=== PATIENT | female | born 1995 | race Caucasian/White ===

== ENCOUNTER 2018-07-25 16:18 | Emergency (ER) | payer OTHER, MEDICAID ==
[~2018-07-25] VITALS: Ht 162.6 cm; Wt 88.5 kg
[2018-07-25 16:23] VITALS: BP 133/72
--- NOTE | 2018-07-25 16:30 | NUR ---
A1 23 YR F BIB SELF WITH C/O INTERMITTENT LT LOWER ABD PAIN FOR OVER A WK. DENIES VAG BLEED OR DISCHARGE. PT STATES SHE HAS MORNING SICKNESS; SKIN IS PINK/WARM/DRY; AAOX4 WITH EVEN AND STEADY GAIT; HR EVEN AND REGULAR; PT DENIES ANY FEVER, CP, SOB, OR COUGH AT THIS TIME; PATIENT STATES PAIN OF 9/10 AT THIS TIME; VSS; PATIENT POSITIONED FOR COMFORT; HOB ELEVATED; BEDRAILS UP X2; BED DOWN. ER MD MADE AWARE OF PT STATUS.
--- NOTE | 2018-07-25 16:32 | NUR ---
PT AMBULATED TO ER BED 12
--- NOTE | 2018-07-25 16:37 | NUR ---
DR. CHAKRABORTY EVALUATING PT BEDSIDE
[2018-07-25 16:50] LABS: APPEARANCE,URINE CLEAR (CLEAR); BILIRUBIN,URINE NEGATIVE (NEGATIVE); BLOOD, URINE NEGATIVE (NEGATIVE); COLOR,URINE YELLOW (YELLOW); LEUKOCYTE ESTERASE ,URINE NEGATIVE (NEGATIVE); NITRITE, URINE NEGATIVE (NEGATIVE); UGLUCOSE 1+ (NEGATIVE)
[2018-07-25 17:12] LABS: BASOPHILS % (AUTO) 0.3 % (0.0-2.0); EOSINOPHILS # (AUTO) 0.2 K/uL (0-0.4); EOSINOPHILS % (AUTO) 2.5 % (0.0-4.0); HEMATOCRIT 37.7 % (36-48); HEMOGLOBIN 12.5 g/dL (12.0-16.0); LYMPHOCYTES % (AUTO) 32.6 % (20.5-51.1); MEAN CORPUSCULAR HEMOGLOBIN 27 pg (27-31); MEAN CORPUSCULAR HGB CONC 33 g/dL (33-37); MEAN CORPUSCULAR VOLUME 82.1 fL (80-94); MONOCYTES # (AUTO) 0.6 K/uL (0.8-1.0); MONOCYTES % (AUTO) 6.1 % (1.7-9.3); NEUTROPHILS # (AUTO) 5.3 K/uL (1.8-7.7); NEUTROPHILS % (AUTO) 58.5 % (42.2-75.2); PLATELET COUNT (AUTO) 233 K/uL (140-450); RED BLOOD CELL COUNT(AUTO) 4.59 MIL/uL (4.20-5.40); RED CELL DISTRIBUTION WIDTH 15.5 % (11.6-13.7); WHITE BLOOD COUNT (AUTO) 9.1 K/uL (4.8-10.8)
[2018-07-25 17:23] LABS: ANION GAP 12.3 (8-16); CARBON DIOXIDE 24.2 mmol/L (21-32); CREATININE 0.8 mg/dL (0.6-1.3); POTASSIUM 3.5 mmol/L (3.5-5.1)
[2018-07-25] MEDS ORDERED: IBUPROFEN 800 MG TAB PO ONE (18:00)
--- NOTE | 2018-07-25 18:59 | NUR ---
PT STATES HER ABDOMINAL PAIN IS 0/10.
[2018-07-25 19:00] VITALS: BP 119/74
--- NOTE | 2018-07-25 19:00 | NUR ---
Patient discharged with v/s stable. Written and verbal after care instructions given and explained. Patient alert, oriented and verbalized understanding of instructions. Ambulatory with steady gait. All questions addressed prior to discharge. ID band removed. Patient advised to follow up with PMD. Rx of MOTRIN 800 MG given. Patient educated on indication of medication including possible reaction and side effects. Opportunity to ask questions provided and answered.
== END 2018-07-25 19:00 | disposition home or self-care (01) ==
LOC: MED 16:18
DX: O34.81 Maternal care for other abnormalities of pelvic organs, first trimester (principal); N83.202 Unspecified ovarian cyst, left side; Z3A.01 Less than 8 weeks gestation of pregnancy; Z88.5 Allergy status to narcotic agent
CPT/HCPCS: 36415; 76801; 80048; 81003; 81025; 84702; 85025; 86900; 86901; 99284; Q0092

== ENCOUNTER 2018-07-29 08:14 | Emergency (ER) | payer OTHER, MEDICAID ==
[~2018-07-29] VITALS: Ht 162.6 cm; Wt 88.5 kg
[2018-07-29 08:16] VITALS: BP 140/96
--- NOTE | 2018-07-29 08:22 | NUR ---
PT AMBULATED TO ROOM 11 AT THIS TIME.
--- NOTE | 2018-07-29 08:36 | NUR ---
Dr. Sawant evaluating patient at bedside.
--- NOTE | 2018-07-29 08:39 | NUR ---
23/f bib self .6 WEEKS , PCP STATES SHE HAD MISCARRAGE, GIVEN AZITHROMYCIN TO HELP REMOVE FETUS. PT STATE SHE WAS UNABLE TO TAKE FULL DOSE AND STARTED TO VOMIT. DENIES VAGINAL BLEEDING AT THIS TIME. NAUSEA, URINARY FREQUENCY. LMP 06/09/18, KARLY 03/15/19. PATIENT STATES PAIN OF 0/10 AT THIS TIME; PATIENT POSITIONED FOR COMFORT; HOB ELEVATED; BEDRAILS UP X1; BED DOWN. ER MD MADE AWARE OF PT STATUS.
[2018-07-29 09:16] LABS: BASOPHILS % (AUTO) 0.3 % (0.0-2.0); EOSINOPHILS # (AUTO) 0.2 K/uL (0-0.4); EOSINOPHILS % (AUTO) 1.8 % (0.0-4.0); HEMATOCRIT 38.2 % (36-48); HEMOGLOBIN 12.5 g/dL (12.0-16.0); LYMPHOCYTES # (AUTO) 1.9 K/uL (2.5-16.5); LYMPHOCYTES % (AUTO) 19.5 % (20.5-51.1); MEAN CORPUSCULAR HEMOGLOBIN 27 pg (27-31); MEAN CORPUSCULAR HGB CONC 33 g/dL (33-37); MEAN CORPUSCULAR VOLUME 82.7 fL (80-94); MONOCYTES # (AUTO) 0.6 K/uL (0.8-1.0); MONOCYTES % (AUTO) 6.5 % (1.7-9.3); NEUTROPHILS # (AUTO) 6.8 K/uL (1.8-7.7); NEUTROPHILS % (AUTO) 71.9 % (42.2-75.2); PLATELET COUNT (AUTO) 241 K/uL (140-450); RED BLOOD CELL COUNT(AUTO) 4.61 MIL/uL (4.20-5.40); RED CELL DISTRIBUTION WIDTH 15.7 % (11.6-13.7); WHITE BLOOD COUNT (AUTO) 9.5 K/uL (4.8-10.8)
[2018-07-29 09:20] LABS: APPEARANCE,URINE CLEAR (CLEAR); BILIRUBIN,URINE NEGATIVE (NEGATIVE); BLOOD, URINE NEGATIVE (NEGATIVE); COLOR,URINE YELLOW (YELLOW); LEUKOCYTE ESTERASE ,URINE NEGATIVE (NEGATIVE); NITRITE, URINE NEGATIVE (NEGATIVE); PH,URINE 6.5 (5.0-9.0); UGLUCOSE TRACE (NEGATIVE)
[2018-07-29 09:30] LABS: ANION GAP 10.5 (8-16); CARBON DIOXIDE 25.4 mmol/L (21-32); CREATININE 0.8 mg/dL (0.6-1.3); POTASSIUM 3.9 mmol/L (3.5-5.1)
[2018-07-29 09:36] LABS: ALBUMIN 3.6 g/dL (3.4-5.0); TOTAL BILIRUBIN 0.2 mg/dL (0.0-1.0)
[2018-07-29 09:38] LABS: RBC,URINE 0-5 /HPF (0-5); WBC,URINE 0-5 /HPF (0-5)
--- NOTE | 2018-07-29 10:43 | NUR ---
Dr. Sawant re-evaluating patient at bedside.
--- NOTE | 2018-07-29 10:43 | NUR ---
Dr. Sawant reevaluating patient at bedside.
[2018-07-29 10:44] VITALS: BP 110/59
--- NOTE | 2018-07-29 10:45 | NUR ---
Patient discharged BY DR DAVEY with v/s stable. Written and verbal after care instructions given and explained. Patient verbalized understanding. Ambulatory with steady gait. All questions addressed prior to discharge. Advised to follow up with PMD.
== END 2018-07-29 10:45 | disposition home or self-care (01) ==
LOC: MED 08:14
DX: O26.891 Other specified pregnancy related conditions, first trimester (principal); R10.30 Lower abdominal pain, unspecified; O21.9 Vomiting of pregnancy, unspecified; Z3A.01 Less than 8 weeks gestation of pregnancy; Z88.5 Allergy status to narcotic agent
CPT/HCPCS: 36415; 76801; 80053; 81001; 81025; 84702; 85025; 99284; Q0092

== ENCOUNTER 2019-03-16 20:31 | Emergency (ER) | payer MEDICAID, OTHER ==
[~2019-03-16] VITALS: Ht 165.1 cm; Wt 88.9 kg
[2019-03-16 20:35] VITALS: BP 115/50
--- NOTE | 2019-03-16 20:40 | NUR ---
PT AMBULATED TO LOBBY WITH STEADY GAIT
--- NOTE | 2019-03-16 21:00 | NUR ---
PT TAKEN TO BED 3
--- NOTE | 2019-03-16 21:00 | NUR ---
23 Y/O FEMALE PT C/O LOWER ABD PAIN, FREQ URINATION, IRREGULAR MENSES, STATES SHE MAY BE . PER PATIENT, " I THINK I MIGHT BE HALF , HALF NOT . MY LOWER ABDOMEN HURTS. ITS A 07/12." DENIES ANY VAGINAL BLEEDING AT THIS TIME. SUPRAPUBIC TENDERNESS NOTED UPON PALPATION; PATIENT STATES THAT THERE IS BURNING WHEN SHE URINATES. ERMD MADE AWARE OF STATUS. SIDE RAILSX1. WILL CONTINUE TO MONITOR. PMH:CHRONIC BRONCHITIS RX:FOLIC ACID ALLEGIE:HYDROCODONE
--- NOTE | 2019-03-16 23:07 | NUR ---
PATIENT IS SITTING QUIETLY IN BED. WILL CONTINUE TO MONITOR.
[2019-03-16 23:34] VITALS: BP 114/61
--- NOTE | 2019-03-16 23:34 | NUR ---
PT DISCHARGED WITH PAPERWORK. EDUCATED PT REGARDING MEDICATIONS AND D/C INSTRUCTIONS. PT VERBALIZED UNDERSTANDING WITH TEACHING. TOLD PT TO FOLLOW UP WITH PCP AND WHEN TO RETURN TO ED. PT AT STABLE CONDITION. ALL QUESTIONS ANSWERED
== END 2019-03-16 23:34 | disposition home or self-care (01) ==
LOC: MED 20:31
DX: N39.0 Urinary tract infection, site not specified (principal); Z88.5 Allergy status to narcotic agent
CPT/HCPCS: 81002; 81025; 99283

== ENCOUNTER 2019-03-18 09:10 | Emergency (ER) | payer MEDICAID ==
[~2019-03-18] VITALS: Ht 162.6 cm; Wt 88.0 kg
[2019-03-18 09:23] VITALS: BP 121/65
[2019-03-18 12:57] LABS: APPEARANCE,URINE CLEAR (CLEAR); BILIRUBIN,URINE NEGATIVE (NEGATIVE); BLOOD, URINE TRACE-I (NEGATIVE); COLOR,URINE ORANGE (YELLOW); LEUKOCYTE ESTERASE ,URINE 2+ (NEGATIVE); NITRITE, URINE POSITIVE (NEGATIVE); UGLUCOSE NEGATIVE (NEGATIVE)
[2019-03-18 13:14] LABS: RBC,URINE NONE SEEN /HPF (0-5)
[2019-03-18 13:56] VITALS: BP 125/70
[2019-03-20 06:08] LABS: CHLAMYDIA TRACHOMATIS AMP DNA Negative (Negative)
== END 2019-03-18 13:57 | disposition home or self-care (01) ==
LOC: MED 09:10
DX: N76.0 Acute vaginitis (principal); N39.0 Urinary tract infection, site not specified; J40 Bronchitis, not specified as acute or chronic; Z88.5 Allergy status to narcotic agent
CPT/HCPCS: 36415; 81001; 81025; 87070; 87086; 87205; 87210; 87491; 99283

== ENCOUNTER 2019-06-24 09:46 | Emergency (ER) | payer MEDICAID ==
[~2019-06-24] VITALS: Ht 165.1 cm; Wt 86.2 kg
[2019-06-24 09:50] VITALS: BP 126/77
--- NOTE | 2019-06-24 10:16 | NUR ---
Dr. Ulrich is evaluating the patient at bedside.
--- NOTE | 2019-06-24 10:20 | NUR ---
C/O URINARY BURNING SENSATION AND LOWER LEFT ABDOMINAL PAIN WITH NAUSEA X 2 DAYS. SEEN BY URGENT CARE TODAY AJND REFERRED TO ER FOR TREATMENT. BOWELS NORMAL. PT ALERT AND AWAKE, VS STABLE, AMBULATORY. MED HX: CHRONIC UTI -CURRENTLY TAKING PYRIDIUM
[2019-06-24 10:28] VITALS: BP 122/80
--- NOTE | 2019-06-24 10:28 | NUR ---
Patient discharged with v/s stable. Written and verbal after care instructions given and explained. Patient alert, oriented and verbalized understanding of instructions. Ambulatory with steady gait. All questions addressed prior to discharge. ID band removed. Patient advised to follow up with PMD. Rx of CIPRO, ZOFRAN, PYRIDIUM given. Patient educated on indication of medication including possible reaction and side effects. Opportunity to ask questions provided and answered. PT CONCERNED THAT SHE MAY HAVE GALLSTONES-INSTRUCTED PT THAT LLQ PAIN ISNT S/S OF GALLSTONES
== END 2019-06-24 10:28 | disposition home or self-care (01) ==
LOC: MED 09:46
DX: N39.0 Urinary tract infection, site not specified (principal); R11.0 Nausea; Z88.5 Allergy status to narcotic agent
CPT/HCPCS: 81002; 81025; 99283

== ENCOUNTER 2019-10-08 05:52 | Emergency (ER) | payer MEDICAID ==
[~2019-10-08] VITALS: Ht 162.6 cm; Wt 85.7 kg
[2019-10-08 05:57] VITALS: BP 146/73
--- NOTE | 2019-10-08 05:59 | NUR ---
PT AMBULATED TO BED #7
--- NOTE | 2019-10-08 06:00 | NUR ---
PT TAKEN TO BED 6
[2019-10-08] MEDS ORDERED: NACL 0.9% 1,000 ML IV ONE (06:05)
--- NOTE | 2019-10-08 06:15 | NUR ---
24 Y/O FEMALE PRESENTS TO ER WITH C/O RIGHT BREAST PAIN, X 3 DAYS. 9/10 PAIN. PT STATES AFTER USING [employer] BUTTER ON HER RIGHT BREAST WHICH IS AFFECTED WITH HER II POSITIVE BREAST CA. SHE HAS BEEN HAVING CONSTANT BURNING AND PEELING AT THE SITE. SHE TOOK 2 NORCO TABS, AND "NGOZI SANTACRUZ OIL" BEFORE COMING INTO ER 30 MIN AGO. LAST CHEMO WAS 09/25/19. LMP 09/15/19. C/O OF NAUSEA DUE TO CHEMO. DENIES DISCHARGE/DRAINAGE/BLOOD FROM AFFECTED BREAST, FEVER, SOB, COUGH, VOMITING, DIARRHEA, HEADACHE. R/R EQUAL, AND UNLABORED, VSS. SIDE RAIL X1, BED IN LOW POSITION, WILL CONTINUE TO MONITOR. DENIES PMH ALLERGY: HYDROCODONE
--- NOTE | 2019-10-08 06:25 | NUR ---
X-Ray at bedside.
--- NOTE | 2019-10-08 06:28 | NUR ---
Dr. Salmon examining patient.
[2019-10-08 06:33] LABS: BASOPHILS % (AUTO) 0.5 % (0.0-2.0); EOSINOPHILS % (AUTO) 1.2 % (0.0-4.0); HEMATOCRIT 34.3 % (36-48); HEMOGLOBIN 11.2 g/dL (12.0-16.0); LYMPHOCYTES # (AUTO) 1.3 K/uL (2.5-16.5); LYMPHOCYTES % (AUTO) 38.2 % (20.5-51.1); MEAN CORPUSCULAR HEMOGLOBIN 27 pg (27-31); MEAN CORPUSCULAR HGB CONC 33 g/dL (33-37); MEAN CORPUSCULAR VOLUME 82.8 fL (80-94); MONOCYTES # (AUTO) 0.5 K/uL (0.8-1.0); MONOCYTES % (AUTO) 15.9 % (1.7-9.3); NEUTROPHILS # (AUTO) 1.5 K/uL (1.8-7.7); NEUTROPHILS % (AUTO) 44.2 % (42.2-75.2); PLATELET COUNT (AUTO) 312 K/uL (140-450); RED BLOOD CELL COUNT(AUTO) 4.14 MIL/uL (4.20-5.40); RED CELL DISTRIBUTION WIDTH 12.7 % (11.6-13.7); WHITE BLOOD COUNT (AUTO) 3.5 K/uL (4.8-10.8)
[2019-10-08] MEDS ORDERED: diphenhydrAMINE 50 MG/ML VIAL IVP ONE (06:45)
[2019-10-08] MEDS ORDERED: MORPHINE SULFATE 2 MG/ML SYR IVP ONE (06:45)
[2019-10-08 06:48] LABS: ANION GAP 18.1 (8-16); CARBON DIOXIDE 25.9 mmol/L (21-32); CREATININE 1.1 mg/dL (0.6-1.3)
[2019-10-08 06:54] LABS: ALBUMIN 3.4 g/dL (3.4-5.0); TOTAL BILIRUBIN 0.2 mg/dL (0.0-1.0)
--- NOTE | 2019-10-08 07:29 | NUR ---
PT RESTING IN BED, SIDE RAIL X1
[2019-10-08] MEDS ORDERED: HYDROcodone/APAP 5/325 MG 1 TAB TAB PO ONE (08:20)
[2019-10-08 08:29] VITALS: BP 140/71
== END 2019-10-08 08:30 | disposition home or self-care (01) ==
LOC: MED 05:52
DX: C50.911 Malignant neoplasm of unspecified site of right female breast (principal)
CPT/HCPCS: 36415; 71045; 80053; 85025; 85610; 85730; 87040; 93005; 96361; 96374; 96375; 99285; J1200; J2270; J7030; Q0092

== ENCOUNTER 2019-11-16 19:52 | Emergency (ER) | payer MEDICAID ==
[~2019-11-16] VITALS: Ht 162.6 cm; Wt 81.6 kg
[2019-11-16 19:58] VITALS: BP 124/66
--- NOTE | 2019-11-16 19:58 | NUR ---
c/o chest pain x today. had chemo 4 days ago. 12/12. CHEST PAIN IS NONRADIATING. EKG SHOWS SINUS TACHY. LUNG SOUNDS CLEAR BILAT UPPER. DIMINISHED RT LOWER LOBE. NO USER OF ACCESSORY MUSCLE. A&O X4. W/C ASSISTED. CAP REFILL < 3. NO EDEMA PRESENT. HEART SOUNDS S1S2 PRESENT. nkda. pmh: breast cancer
[2019-11-16] MEDS ORDERED: MORPHINE SULFATE 4 MG/ML SYR IVP ONE ×2 (20:20→23:00)
[2019-11-16] MEDS ORDERED: NACL 0.9% 1,000 ML IV ONE (20:20)
[2019-11-16] MEDS ORDERED: ONDANSETRON 4 MG/2 ML VIAL IVP ONE ×2 (20:20→23:00)
--- NOTE | 2019-11-16 20:34 | NUR ---
XR AT BEDSIDE.
--- NOTE | 2019-11-16 20:38 | NUR ---
PT SIGNED CONSENT FORM FOR CT ANGIO.
[2019-11-16 21:12] LABS: BASOPHILS % (AUTO) 0.1 % (0.0-2.0); EOSINOPHILS # (AUTO) 0.2 K/uL (0-0.4); EOSINOPHILS % (AUTO) 1.1 % (0.0-4.0); HEMATOCRIT 25.5 % (36-48); HEMOGLOBIN 8.2 g/dL (12.0-16.0); LYMPHOCYTES # (AUTO) 0.7 K/uL (2.5-16.5); LYMPHOCYTES % (AUTO) 3.8 % (20.5-51.1); MEAN CORPUSCULAR HEMOGLOBIN 25 pg (27-31); MEAN CORPUSCULAR HGB CONC 32 g/dL (33-37); MEAN CORPUSCULAR VOLUME 78.2 fL (80-94); MONOCYTES # (AUTO) 0.1 K/uL (0.8-1.0); MONOCYTES % (AUTO) 0.7 % (1.7-9.3); NEUTROPHILS # (AUTO) 16.3 K/uL (1.8-7.7); NEUTROPHILS % (AUTO) 94.3 % (42.2-75.2); PLATELET COUNT (AUTO) 543 K/uL (140-450); RED BLOOD CELL COUNT(AUTO) 3.26 MIL/uL (4.20-5.40); RED CELL DISTRIBUTION WIDTH 14.8 % (11.6-13.7); WHITE BLOOD COUNT (AUTO) 17.3 K/uL (4.8-10.8)
[2019-11-16 21:20] LABS: PROTHROMBIN TIME 11.8 secs (10.8-13.4)
--- NOTE | 2019-11-16 21:30 | NUR ---
MARIANNA ENDO STARTED IV US GUIDED. 20 GUAGE ON LAC.
[2019-11-16 21:31] LABS: ALBUMIN 2.1 g/dL (3.4-5.0); ANION GAP 20.9 (8-16); CARBON DIOXIDE 23.1 mmol/L (21-32); CREATININE 0.9 mg/dL (0.6-1.3); TOTAL BILIRUBIN 0.5 mg/dL (0.0-1.0)
--- NOTE | 2019-11-16 21:59 | NUR ---
PT TAKEN TO CTA VIA W/C.
--- NOTE | 2019-11-16 22:08 | NUR ---
PT RETURNED BACK FROM CTA VIA W/C.
[2019-11-16] MEDS ORDERED: LORazepam 2 MG/ML VIAL IVP ONE (22:20)
[2019-11-16 23:41] VITALS: BP 124/66
--- NOTE | 2019-11-16 23:41 | NUR ---
Patient discharged with v/s stable. Written and verbal after care instructions given and explained. Patient alert, oriented and verbalized understanding of instructions. Wheel Chair Assisted. All questions addressed prior to discharge. ID band removed. Patient advised to follow up with PMD. Rx of PERCOCET given. Patient educated on indication of medication including possible reaction and side effects. Opportunity to ask questions provided and answered.
== END 2019-11-16 23:41 | disposition home or self-care (01) ==
LOC: MED 19:52
DX: R07.89 Other chest pain (principal); M79.10 Myalgia, unspecified site; Z85.3 Personal history of malignant neoplasm of breast
CPT/HCPCS: 36415; 71045; 71275; 80053; 83880; 84484; 84702; 85025; 85610; 85730; 96361; 96374; 96375; 96376; 99285; J2060; J2270; J2405; J7030; Q0092; Q9967

== ENCOUNTER 2019-11-22 12:39 | Emergency (ER) | payer MEDICAID ==
[~2019-11-22] VITALS: Ht 162.6 cm; Wt 76.7 kg
[2019-11-22 12:40] VITALS: BP 140/54
--- NOTE | 2019-11-22 12:48 | NUR ---
PATIENT AMBULATED TO BED 4.
[2019-11-22] MEDS ORDERED: NACL 0.9% 1,000 ML IV SCH (12:55)
[2019-11-22] MEDS ORDERED: ONDANSETRON 4 MG/2 ML VIAL IVP ONE (12:55)
--- NOTE | 2019-11-22 13:25 | NUR ---
C/O N/V/D X 6 DAYS. PT AOX4, AFIBRILE , AMBULATORY WITH STEADY GAIT , PINK PALPEBRAL CONJUNCTIVA , ANICTERIC SCLERA , MOIST MUCUS MEMBRANE, SCE , FLAT SOFT ABDOMEN , GOOD SKIN TURGOR. MED HX: R BREAST CANCER ON CHEMOTHERAPY SINCE SEPTEMBER
--- NOTE | 2019-11-22 13:27 | NUR ---
DR. MENESES AT BEDSIDE EVALUATING PATIENT.
--- NOTE | 2019-11-22 13:37 | NUR ---
PT AMBULATED TO RESTROOM TO DO 2.
--- NOTE | 2019-11-22 13:48 | NUR ---
PT BACK IN BED , CONNECTED TO IV WITH GOOD FLOW.PT COMFORTABLE IN BED WITH SIDE RAIL UP AND LOCK AT LOWEST POSITION.
[2019-11-22 13:50] LABS: BASOPHILS # (AUTO) 0.1 K/uL (0.00-0.22); BASOPHILS % (AUTO) 0.8 % (0.0-2.0); EOSINOPHILS # (AUTO) 0.1 K/uL (0-0.4); EOSINOPHILS % (AUTO) 0.7 % (0.0-4.0); HEMATOCRIT 28.5 % (36-48); HEMOGLOBIN 9.3 g/dL (12.0-16.0); MEAN CORPUSCULAR HEMOGLOBIN 25 pg (27-31); MEAN CORPUSCULAR HGB CONC 33 g/dL (33-37); MEAN CORPUSCULAR VOLUME 77.2 fL (80-94); MONOCYTES % (AUTO) 11.1 % (1.7-9.3); NEUTROPHILS # (AUTO) 6.9 K/uL (1.8-7.7); NEUTROPHILS % (AUTO) 76.4 % (42.2-75.2); PLATELET COUNT (AUTO) 787 K/uL (140-450); RED BLOOD CELL COUNT(AUTO) 3.69 MIL/uL (4.20-5.40); RED CELL DISTRIBUTION WIDTH 15.8 % (11.6-13.7)
[2019-11-22 14:06] LABS: ALBUMIN 2.7 g/dL (3.4-5.0); ANION GAP 20.1 (8-16); CARBON DIOXIDE 20.9 mmol/L (21-32); CREATININE 1.1 mg/dL (0.6-1.3); TOTAL BILIRUBIN 0.8 mg/dL (0.0-1.0)
[2019-11-22] MEDS ORDERED: POTASSIUM CHLORIDE 10 MEQ TABER PO ONE (14:15)
[2019-11-22 14:58] VITALS: BP 140/54
--- NOTE | 2019-11-22 14:58 | NUR ---
Patient discharged with v/s stable. Written and verbal after care instructions given and explained regarding diarrhea . Patient alert, oriented and verbalized understanding of instructions. Ambulatory with steady gait. All questions addressed prior to discharge. ID band removed. Patient advised to follow up with PMD. Rx of xifaxan given. Patient educated on indication of medication including possible reaction and side effects. Opportunity to ask questions provided and answered.
--- NOTE | 2019-11-24 12:18 | NUR ---
LATE ENTRY - CONFIRMED WITH RN END TIME FOR NORMAL SALINE IS 1431 11/21/19.
== END 2019-11-22 14:58 | disposition home or self-care (01) ==
LOC: MED 12:39
DX: R19.7 Diarrhea, unspecified (principal); Z85.3 Personal history of malignant neoplasm of breast
CPT/HCPCS: 36415; 80053; 81002; 81025; 83690; 85025; 96361; 96374; 99283; J2405; J7030